=== PATIENT | male | born 1965 | race Caucasian/White ===

== ENCOUNTER 2019-08-22 13:24 | Inpatient (IN) | payer OTHER ==
[2019-08-22] VITALS (8 sets, daily range): BP systolic 133–187; BP diastolic 84–116
[~2019-08-22] VITALS: Ht 177.8 cm; Wt 104.2 kg
[2019-08-22 14:36] LABS: ABSOLUTE NEUTROPHILS 6.8 thou/uL (1.4-8.2); BASOPHILS 0.5 % (0.0-2.0); EOSINOPHILS 3.7 % (0.0-3.0); HEMATOCRIT 48.3 % (42.0-52.0); HEMOGLOBIN 16.3 gm/dL (14.0-18.0); LYMPHOCYTES 10.7 % (24.0-44.0); MCH 36.7 pg (26.0-34.0); MCHC 33.7 g/dL (28.0-37.0); MCV 108.8 fL (80.0-100.0); MONOCYTES 6.1 % (1.0-8.0); PLATELET COUNT 185 thou/uL (150-400); RBC 4.43 mil/uL (4.50-6.00); RDW 15.6 % (10.5-14.5); WBC 8.7 thou/uL (4.0-11.0)
[2019-08-22 14:40] LABS: ANION GAP 10 mmol/L (7-16); BUN 7 mg/dL (7-18); CALCIUM 8.6 mg/dL (8.5-10.1); CHLORIDE 101 mmol/L (98-107); CO2 28 mmol/L (21-32); CREATININE 0.8 mg/dL (0.7-1.3); GLUCOSE 117 mg/dL (74-106); SODIUM 139 mmol/L (136-145)
[2019-08-22 14:50] LABS: ALBUMIN 2.5 g/dL (3.4-5.0); MAGNESIUM 1.7 mg/dL (1.8-2.4); PHOSPHORUS 3.6 mg/dL (2.5-4.9); SGOT 137 U/L (15-37); SGPT 52 U/L (30-65); TOTAL PROTEIN 8.7 g/dL (6.4-8.2); TROPONIN-I <0.06 ng/mL (<0.06)
[2019-08-22 14:55] LABS: HCO3 27.3 mmol/L (22.0-26.0); PCO2 49.4 mmHg (35.0-45.0); PO2 72.6 mmHg (80.0-100.0); sO2 93.9 % (92.0-98.0)
[2019-08-22 15:02] LABS: APTT 32.9 Seconds (24.5-32.8); D-DIMER 4.07 ug/mLFEU (0.19-0.50); INR 1.5; PROTIME 14.9 Seconds (9.3-11.4)
[2019-08-22 17:10] LABS: CLARITY CLOUDY; COLOR AMBER; SOURCE RIGHT CHEST; TOTAL VOLUME 60 mL
[2019-08-22 17:32] LABS: BF NUCLEATED CELLS 201; BF RBC 9305
[2019-08-22 18:10] LABS: AMP/METHAMP Negative (Negative); BARBITURATES Negative (Negative); BENZODIAZEPINES Negative (Negative); COCAINE Negative (Negative); METHADONE Negative (Negative); OPIATES Negative (Negative); PCP Negative (Negative)
[2019-08-22 19:10] LABS: BF MACROPHAGE 70; BF NEUTROPHILS 4
[2019-08-22] MEDS ORDERED: VITAMIN D3 COM1 EACH PO (20:00)
[2019-08-22] MEDS ORDERED: CENTRUM MEN'S1 EACH PO (20:01)
--- NOTE | 2019-08-22 21:16 | NUR ---
ADMISSION NOTE: ARRIVED FROM [facility] AT 1930. AX04. ON 6L NC, SATS ABOVE 90%. SHALLOW BREATHING NOTED. VSS. AFEBRILE. CONSULTS CALLED INTO DR. WHITE AND APURVA. SPOKE TO DR. MIXON AT 2043, UPDATED DR. MIXON ABOUT PT'S STATUS, CARE AND LABS. ORDERS FOR BIPAP PRN GIVEN IF NEEDED. CALLED [facility] TO INFORM ABOUT NEED FOR CIWA PROTOCOL, UNABLE TO REACH [facility], WILL TRY AGAIN. WILL CONTINUE TO MONITOR PT.
[2019-08-23] VITALS (29 sets, daily range): BP systolic 129–179; BP diastolic 55–109
--- NOTE | 2019-08-23 02:00 | NUR ---
INCREASED NEED FOR O2 AT 0200 AM. PT WAS RESTLESS DURING THAT TIME. STATED HE WAS DIZZY AND HAVING DIFFICULTIES BREATHING. 1 MG ATIVAN IV GIVEN. TRIED TO PLACE PATIENT ON NONREBREATHER, PT WAS UNABLE TO TOLERATE. PT PLACED ON 12L NC. SATS ABOVE 92%. INFORMED HISTOLOGY TECH KIM ABOUT PATIENT CHANGE IN STATUS.
--- NOTE | 2019-08-23 08:13 | EKG ---
[facility] [place] [address] ELECTROCARDIOGRAM REPORT Name: CHAPARRO STEPHENS Room #: 239-P ADM IN M.R.#: [id number] Admission: 08/22/19 Attend Phys: Oj Gasca MD Discharge: Date of : 65 Report #: [id number] THIS REPORT FOR: cc: FAM - Family physician unknown FAM - Family physician unknown Juan Pablo Sharif MD [facility] ~ THIS REPORT FOR: //name// [facility] ED Test Date: 2019-08-22 Test Time: 13:28:47 Pat Name: CHAPARRO STEPHENS Department: Room: 239 Gender: M Logistics Planning Manager: EMERSON : [id number] Requested By: Ruddy Lovelace Order Number: [id number] MD: Juan Pablo Sharif Measurements Intervals [place] Rate: 107 P: 61 NH: 159 QRS: 99 QRSD: 98 T: 18 QT: 351 QTc: 469 Interpretive Statements Sinus tachycardia Nonspecific ST and T wave abnormality No previous ECG available for comparison Electronically Signed On 08-23-2019 8:12:04 CDT by Juan Pablo Sharif [email or web address] <ELECTRONICALLY SIGNED> By: Juan Pablo Sharif MD, FAC 08/23/19 0812 [id number] [id number] Juan Pablo Sharif MD, [facility] /EPI
[2019-08-23 08:39] LABS: ALBUMIN 2.4 g/dL (3.4-5.0); CALCIUM 8.1 mg/dL (8.5-10.1); CREATININE 0.7 mg/dL (0.7-1.3); MAGNESIUM 1.7 mg/dL (1.8-2.4); POTASSIUM 3.7 mmol/L (3.5-5.1); TOTAL BILIRUBIN 3.8 mg/dL (<0.1-1.0); TOTAL PROTEIN 7.8 g/dL (6.4-8.2)
[2019-08-23 09:08] LABS: BODY FLUID ALBUMIN 0.4 g/dL (Not Estab.); BODY FLUID AMYLASE 25 U/L (()); BODY FLUID GLUCOSE 118 mg/dL (()); BODY FLUID LDH 70 IU/L (()); BODY FLUID PROTEIN 1.2 g/dL (())
--- NOTE | 2019-08-23 09:11 | NUR ---
chart review. cm called pt cell, no answer. cm gave bedside nurse safe net packet for tracie and dcp outpt resources. report from bedside nurse that pt is very short of air and unable to talk via phone call. noted no prim noted, no insurance noted. will cont following as needed for dc needs.
[2019-08-23 10:22] LABS: % SATURATION 47 % (20-39); IRON 94 ug/dL (65-175); TIBC 198 ug/dL (250-450)
[2019-08-23 12:08] LABS: IgG 3242 mg/dL (603-1613)
[2019-08-23 13:08] LABS: HAV IgM AB (ANTI-HAV IgM) Negative (Negative); HEPATITIS B SURFACE AG Negative (Negative); HEPATITIS C VIRUS AB <0.1 (0.0-0.9)
[2019-08-23 16:52] LABS: BE(vivo) 6.5 mmol/L (-2 to +3); HCO3 32.6 mmol/L (22.0-26.0); PCO2 51.6 mmHg (35.0-45.0); PO2 66.2 mmHg (80.0-100.0); pH 7.419 (7.360-7.450); sO2 93.2 % (92.0-98.0)
--- NOTE | 2019-08-23 19:30 | NUR ---
IMPROVED TODAY, REMAINS ON 15L/HIGH FLOW NC WITH HUMIDITY. ST-109, BP CONTROLLED WITH PRN HYDRALAZINE, RESP LESS LABORED WITH MORPHINE IV ADMINISTRATION, TOLERATED 25% PM MEAL, LARGE URINE OUTPUT RESPONSE TO LASIX, WAS UNABLE TO USE URINAL EFFECTIVELY- ENTIRELY SOAKING PAD AND UNABLE TO MONITOR EXACT URINE OUTPUT. GARVIN 18 FR PLACED WITH STERILE TECHNIQUE, WELL TOLERATED. COVID RESULTED NEGATIVE. CALL PLACED TO DR. YEH REGARDING RESULT. CALL NOT RETURNED AT THIS TIME.
[2019-08-24] VITALS (22 sets, daily range): BP systolic 108–160; BP diastolic 53–95
--- NOTE | 2019-08-24 05:11 | NUR ---
1900, PT ALERT AND ORIENTED. PT ON 15 L HIGH FLOW NASAL CANNULA. LABORED BREATHING WITH USE OF ACCESORY MUSCLES. PT REPORTS THE BREATHING IS BETTER THAN WHAT HE WA PREVIOUSLY. PT CURRENTLY ON A NONE REBREATHER DUE TO O2 DESAT OVERNIGHT. SCORES 3 ON CIWA. PT DENIES HALLUCINATING. MORPHINE PRN GIVEN FOR SOB AND GENERALIZED ABDOMINAL PAIN. MILD COUGH AND CONGESTION, CRACKLES AND COURSENESS IN ALL LUNG GOMEZ. PT WAS HAVING BLOODY URINE THIS MORNING FOR THE CATHETER. DIRECTOR OF COMPENSATION NOTIFIED. ORDERS TO FLUSH GARVIN AND COLLECT UA GIVEN. NO ADDITIONAL C/O AT THIS TIME. WILL CONTINUE WITH POC.
[2019-08-24 05:51] LABS: HEMATOCRIT 44.7 % (42.0-52.0); HEMOGLOBIN 15.2 gm/dL (14.0-18.0); MCH 37.4 pg (26.0-34.0); RBC 4.07 mil/uL (4.50-6.00); RDW 15.3 % (10.5-14.5); WBC 10.8 thou/uL (4.0-11.0)
[2019-08-24 06:06] LABS: INR 1.4
[2019-08-24 06:27] LABS: ALBUMIN 2.2 g/dL (3.4-5.0); CALCIUM 8.3 mg/dL (8.5-10.1); CREATININE 0.7 mg/dL (0.7-1.3); POTASSIUM 4.2 mmol/L (3.5-5.1); TOTAL BILIRUBIN 3.6 mg/dL (<0.1-1.0); TOTAL PROTEIN 8.1 g/dL (6.4-8.2)
[2019-08-24 08:12] LABS: CERULOPLASMIN 33.1 mg/dL (16.0-31.0)
[2019-08-24 08:52] LABS: SOURCE CHEST
--- NOTE | 2019-08-24 11:59 | NUR ---
ON-GOING ASSESSMENT: CM REVIEWED CHART AND SPOKE WITH ATTENDING. PT HAD THORACENTESIS YESTERDAY. PT IS MORE TACHYPNEIC AND HYPOXIC TODAY. PULMONARY SPOKE WITH PATIENT ABOUT POSSIBLE NEED FOR INTUBATION, PT WISHES TO BE DNR AND IS ON 15L NRB MASK. CM WILL CONTINUE TO FOLLOW TO ASSIST NEEDED.
--- NOTE | 2019-08-24 13:08 | PATH ---
[facility] [address] [place] [address] PATHOLOGY RPT PROCEDURE Name: CHAPARRO STEPHENS Room #: 239-P ADM IN M.R.#: [id number] Admission: 08/22/19 Date of : 65 Discharge: Report #: [id number] Path Case #: [id number] Note [facility] Accession Number: [id number] TESTS RESULT FLAG UNITS REF RANGE LAB Clinician Provided Cytology Information No. of containers..01 Other (Miscellaneous) Source: 01 R PLEURAL DIAGNOSIS: 02 RIGHT PLEURAL FLUID NEGATIVE FOR MALIGNANT EPITHELIAL CELLS. REACTIVE MESOTHELIAL CELLS ARE PRESENT. THIS INTERPRETATION INCLUDES EVALUATION OF A CELL BLOCK. Pathologist ICD10: 02 J90 Signed out by: Sandra Kaplan MD, Pathologist NPI- [id number] Performed by: Adri Franco, Rolling Mill Operator Helper ([facility]) Gross description: 01 20 ML, CLOUDY ORANGE, 1 TP 1 CB /LCS 08/23/2019 1105 Local FLAG LEGEND: L-Low Normal,H-High Normal,LL-Alert Low,HH-Alert High <-Panic Low,>-Panic High,A-Abnormal,AA-Critical Abnormal Performed at: [address] [place] [address] Alexander Mercado MD, [address] [address] Sandra Kaplan MD, Specimen Comment: A courtesy copy of this report has been sent to [phone] Specimen Comment: Report sent to Performed at: [address], [place], [place] [id number] MD Alexander Mercado MD Phone: [phone]
[2019-08-24 13:19] LABS: BE(vivo) 9.1 mmol/L (-2 to +3); HCO3 41.2 mmol/L (22.0-26.0); sO2 93.8 % (92.0-98.0)
[2019-08-24 13:20] LABS: PCO2 97.9 mmHg (35.0-45.0); pH 7.242 (7.360-7.450)
--- NOTE | 2019-08-24 18:18 | NUR ---
ASSUMED CARE OF PT AT 0700. PT ALERT AND ORIENTED X2-3 LETHARGIC. ON HIGH FLOW PLUS NONREBREATHER EARLIER TODAY - NOW ON BIPAP. CRITICAL CO2 RELAYED TO PULM. APPEARS TO BE IMPROVING AFTER TIME ON BIPAP - NOW MORE RESPONSIVE. REPORTS FEELING OVERALL BETTER TODAY. ATE LITTLE AMOUNTS DURING MEALS. TEXTING AND TAKING SELFIES ON PHONE. GARVIN IRRIGATED PER ORDER - URINE COLOR CLEARING UP, LESS SEDIMENT. GOOD OUTPUT AFTER LASIX. CIWA 3-5. CALLS APPROPRIATELY. VITALS STABLE. INCREASED RESPIRATIONS THROUGHOUT SHIFT. SLOW PROGRESS TOWARD POC GOALS.
[2019-08-25] VITALS (25 sets, daily range): BP systolic 109–162; BP diastolic 62–86
[2019-08-25 02:57] LABS: URINE BILIRUBIN 2+ (Negative); URINE BLOOD 3+ (Negative); URINE CLARITY SL CLOUDY; URINE COLOR YELLOW; URINE GLUCOSE-RANDOM* NEGATIVE (Negative); URINE KETONES NEGATIVE (Negative); URINE LEUKOCYTES TRACE (Negative); URINE NITRITE NEGATIVE (Negative); URINE PROTEIN (DIPSTICK) TRACE (Negative); URINE SPECIFIC GRAVITY 1.025 (1.005-1.035)
[2019-08-25 03:19] LABS: BACTERIA 1-9 Few /HPF (None Seen); CASTS None Seen /LPF (None Seen); CRYSTALS None Seen /LPF (None Seen); MUCUS 4-6 Moderate strn/LPF (None Seen); SQUAMOUS 0-3 Few /LPF (0-3); URINE RBC >20 Many /HPF (0-2); URINE WBC 0-5 Rare /HPF (0-5)
[2019-08-25 05:23] LABS: ALBUMIN 1.9 g/dL (3.4-5.0); ANION GAP 0 mmol/L (7-16); BUN 10 mg/dL (7-18); CALCIUM 8.1 mg/dL (8.5-10.1); CHLORIDE 99 mmol/L (98-107); CO2 38 mmol/L (21-32); CREATININE 0.7 mg/dL (0.7-1.3); GLUCOSE 103 mg/dL (74-106); MAGNESIUM 1.7 mg/dL (1.8-2.4); POTASSIUM 3.8 mmol/L (3.5-5.1); SGOT 95 U/L (15-37); SGPT 43 U/L (30-65); SODIUM 137 mmol/L (136-145); TOTAL BILIRUBIN 2.6 mg/dL (<0.1-1.0); TOTAL PROTEIN 6.8 g/dL (6.4-8.2); TROPONIN-I <0.06 ng/mL (<0.06)
[2019-08-25 05:39] LABS: BE(vivo) 10.6 mmol/L (-2 to +3); HCO3 39.8 mmol/L (22.0-26.0); PO2 62.3 mmHg (80.0-100.0); pH 7.339 (7.360-7.450); sO2 89.4 % (92.0-98.0)
[2019-08-25 05:44] LABS: PCO2 75.6 mmHg (35.0-45.0)
[2019-08-25 05:50] LABS: ABSOLUTE NEUTROPHILS 6.3 thou/uL (1.4-8.2); BASOPHILS 0.3 % (0.0-2.0); EOSINOPHILS 4.5 % (0.0-3.0); HEMATOCRIT 40.6 % (42.0-52.0); HEMOGLOBIN 13.5 gm/dL (14.0-18.0); LYMPHOCYTES 11.2 % (24.0-44.0); MCH 36.7 pg (26.0-34.0); MCHC 33.3 g/dL (28.0-37.0); MCV 110.1 fL (80.0-100.0); MONOCYTES 8.2 % (1.0-8.0); PLATELET COUNT 139 thou/uL (150-400); POLYS 75.8 % (36.0-66.0); RBC 3.69 mil/uL (4.50-6.00); RDW 14.8 % (10.5-14.5); WBC 8.3 thou/uL (4.0-11.0)
--- NOTE | 2019-08-25 06:36 | NUR ---
ASSUMED CARE AT 1900. PT ON NC AT 15L THEN SWITCHED TO BIPAP, TOLERATING WELL WITH SATS MID 90'S. DENIED NAUSEA. REPORTED RIGHT ABD AND LEFT HIP PAIN THIS AM, GAVE DOSE OF MORPHINE WHICH HELPED PT SLEEP. APPROX 0315, PT TOOK BIPAP OFF FOR A DRINK AND DESATTED TO 75%; REPLACED MASK AND RETURNED TO BASELINE. PT ASKED TO SWITCH TO NC ABOUT 0340, DROPPED INTO LOW 80'S AND RT PLACED ON "INTERIOR WIRER MASK" VIA BIPAP BY RT; SATS STAYED ABOUT 92%. CRITICAL PCO2 CALLED TO DR. MIXON, NO ORDERS RECEIVED. NO OTHER CONCERNS.
[2019-08-25 10:08] LABS: ANA INTERPRETATION Positive (Negative)
--- NOTE | 2019-08-25 12:25 | NUR ---
ON-GOING ASSESSMENT: PT IS TOLERATING BIPAP AND SHOWING SLOW PROGRESSION. CM WILL CONTINUE TO FOLLOW TO ASSIST NEEDED.
--- NOTE | 2019-08-25 15:07 | NUR ---
PATIENT ALERT AND ORIENTED, ON BIPAP NEEDED OTHERWISE ON 15L NRB. VITALS STABLE AND MEDICATED FOR HEADACHE WITH TYLENOL. TOLERATING DIET BUT POOR APPETITE. DR. MIXON CONSULTED DR. YEH AND PER DR. YEH PATIENT CAN COME OFF ISOLATION. ORDERS IN COMPUTER FOR CC TELE. PATIENT WILL TRANSFER WHEN ROOM IS AVAILABLE.
--- NOTE | 2019-08-25 15:27 | NUR ---
bedside nurse called to check and make sure it was legit to have pt call [facility], they called [facility] and wanted tracie to call them about medicaid. education that it is ok for him to call [facility] they help hospital with medicaid apps.
--- NOTE | 2019-08-25 17:31 | NUR ---
gave order patient can be transferred to telemetry or regular bed. He is a DNR. Dr. Snyder agrees with transfer and to discontinue isolation. Serina Eagle nursing respiratory supervisor notified of above but no beds available. She states beds will open up tomorrow so can move to pod 2 until then.
[2019-08-26] VITALS (19 sets, daily range): BP systolic 110–146; BP diastolic 64–91
--- NOTE | 2019-08-26 04:20 | NUR ---
ASSUMED PT CARE AT 1900, PT IS A&OX4, MAKES NEEDS KNOWN, PT ON 15 L ON A NON-REBREAHER SWITHED TO BIPAP AND TOLERATING WELL WITH SATS STABLE IN MID , SR ON THE MONITOR WITH VITALS STABLE, PT BECAME ANXIOUS ABOUT 2209, STATED THAT HE WANTED TO GET UP FOR SOME FRESH AIR, ATIVAN GIVEN WHICH CALMED HIM DOWN, NO MORE EPISODES THUS FAR, COMPLAINED OF HEADACHE, TYL GIVEN WITH RELIEF, PT OFERRED A BATH BUT REFUSED THIS AM, STATES HE WANTS TO GET MORE SLEEP, RESTING IN BED WITH NO DISTRESS NOTED AT THIS TIME, WILL CONTINUE TO MONITOR
--- NOTE | 2019-08-26 06:31 | NUR ---
ATIVAN GIVEN FOR ANXIETY, PT CALM IN BED, BATH GIVEN, NO DISTRESS NOTED
--- NOTE | 2019-08-26 09:04 | NUR ---
PATIENT RESTING IN BED WITH EYES CLOSED. DENIES PAIN. CEWA SCORE=1 AT THIS TIME. ON BIPAP 75%, REFUSING BREAKFAST AT THIS TIME. ENCOURAGED TO INCREASE NUTRITION. GARVIN SECURED AND PATENT. FALL PRECAUTIONS IN PLACE.
[2019-08-26 10:23] LABS: HEMATOCRIT 43.2 % (42.0-52.0); HEMOGLOBIN 14.7 gm/dL (14.0-18.0); MCH 36.9 pg (26.0-34.0); MCHC 34.1 g/dL (28.0-37.0); MCV 108.3 fL (80.0-100.0); PLATELET COUNT 141 thou/uL (150-400); RBC 3.99 mil/uL (4.50-6.00); RDW 14.7 % (10.5-14.5); WBC 6.6 thou/uL (4.0-11.0)
[2019-08-26 10:33] LABS: ANION GAP < 0 mmol/L (7-16); BUN 11 mg/dL (7-18); CALCIUM 8.4 mg/dL (8.5-10.1); CHLORIDE 97 mmol/L (98-107); CO2 42 mmol/L (21-32); CREATININE 0.8 mg/dL (0.7-1.3); GLUCOSE 101 mg/dL (74-106); POTASSIUM 3.4 mmol/L (3.5-5.1); SODIUM 137 mmol/L (136-145)
[2019-08-26 11:16] LABS: BE(vivo) 14.7 mmol/L (-2 to +3); HCO3 41.3 mmol/L (22.0-26.0); PO2 72.4 mmHg (80.0-100.0); sO2 95.1 % (92.0-98.0)
[2019-08-26 11:39] LABS: ABSOLUTE NEUTROPHILS 5.2 thou/uL (1.4-8.2); ANISOCYTOSIS 1+; MACROCYTES 2+; PLATELET ESTIMATE SLIGHTLY DECREASED
--- NOTE | 2019-08-26 15:06 | NUR ---
SW reviewed chart and spoke with nursing and attending physician. Pt transferred to from ICU earlier today. Therapy ordered to evaluate pt for discharge needs. No weekend discharge planned. [facility] is following to assist as needed with discharge planning.
--- NOTE | 2019-08-26 17:34 | NUR ---
ASSUMED CARE OF PT AT APPROX 1330 FROM ICU. ASSESSMENT CHARTED. PT A&OX4, NO C/O PAIN. PT ON 10L HIGH FLOW NC, WITH NO DISTRESS DURING THIS SHIFT. 1600 CIWA=5, D/T SLIGHT NAUSEA AND HEADACHE. WILL CONTINUE TO MONITOR AND FOLLOW POC.
[2019-08-27 00:14] VITALS: BP 124/72
[2019-08-27 04:41] VITALS: BP 116/65
--- NOTE | 2019-08-27 04:51 | NUR ---
Assumed pt care at 1900. Pt is alert and oriented. No sign of distress noted in pt. CIWA protocol in place. Pt is on oxygen, high flow. SOA with activity noted. Vital sign stable. Assessment completed and documented. Tolerated PO intake. Pt became anxious right before bedtime. Medication administered. BIPAP placed in patient at bedtime. Denies any pain. Continue to monitor. No further needs at this time.
[2019-08-27 05:34] LABS: DIRECT BILIRUBIN 1.8 mg/dL (<0.1-0.2); TOTAL BILIRUBIN 2.9 mg/dL (<0.1-1.0); TOTAL PROTEIN 7.3 g/dL (6.4-8.2)
[2019-08-27 07:10] VITALS: BP 129/80
[2019-08-27 11:00] VITALS: BP 139/75
[2019-08-27 17:20] VITALS: BP 147/90
[2019-08-27 19:26] VITALS: BP 154/83
--- NOTE | 2019-08-27 19:41 | NUR ---
ASSUMED CARE OF PATIENT AT 0700. ASSESSMENT COMPLETED. GARVIN CATHETER PATENT. ABX GIVEN VIA IV. PATIENT LAYING IN BED ON HIS RIGHT SIDE AND UNWILLING TO MOVE DUE TO DIFFICULTY BREATHING AND UNCOMFORTABLNESS. O2 SAT 92-95% AT THIS TIME. LASIX GIVEN. PATIENT COMPLAINING OF PAIN AT 10/10, MORPHINE 4 MG GIVEN. PATIENT QUICKLY FELL ASLEEP, SLEEPING FOR 5 HOURS. PATIENT DID NOT EAT BREAKFAST OR LUNCH. HE WOKE UP IN TIME TO EAT DINNER, SITTING UP IN BED AND STATING THAT HIS PAIN WAS AT A 4/10, DENYING ANY DIFFICULTY BREATHING. PATIENT TO CONTINUE WITH POC.
[2019-08-28 04:07] LABS: ABSOLUTE NEUTROPHILS 4.9 thou/uL (1.4-8.2); BASOPHILS 0.5 % (0.0-2.0); EOSINOPHILS 7.2 % (0.0-3.0); HEMATOCRIT 41.1 % (42.0-52.0); LYMPHOCYTES 13.3 % (24.0-44.0); MCH 36.6 pg (26.0-34.0); MCV 107.7 fL (80.0-100.0); MONOCYTES 9.7 % (1.0-8.0); PLATELET COUNT 120 thou/uL (150-400); POLYS 69.3 % (36.0-66.0); RBC 3.82 mil/uL (4.50-6.00); RDW 14.7 % (10.5-14.5)
[2019-08-28 04:14] LABS: INR 1.3; PROTIME 13.5 Seconds (9.3-11.4)
[2019-08-28 04:17] VITALS: BP 107/67
[2019-08-28 04:21] LABS: ANION GAP < 0 mmol/L (7-16); BUN 14 mg/dL (7-18); CALCIUM 8.4 mg/dL (8.5-10.1); CHLORIDE 99 mmol/L (98-107); CO2 44 mmol/L (21-32); CREATININE 0.8 mg/dL (0.7-1.3); GLUCOSE 95 mg/dL (74-106); MAGNESIUM 1.9 mg/dL (1.8-2.4); PHOSPHORUS 3.5 mg/dL (2.5-4.9); POTASSIUM 3.7 mmol/L (3.5-5.1); SGOT 126 U/L (15-37); SGPT 56 U/L (30-65); SODIUM 138 mmol/L (136-145); TOTAL BILIRUBIN 2.9 mg/dL (<0.1-1.0); TOTAL PROTEIN 7.2 g/dL (6.4-8.2)
--- NOTE | 2019-08-28 05:19 | NUR ---
ASSUMED PT CARE AT 1900. PT IS ALERT AND ORIENTED WITH NO SIGN OF DISTRESS NOTED IN PT. DENIES ANY PAIN. PT IS STABLE. ASSESSMENT COMPLETED AND DOCUMENTED. SCHEDULED MEDS ADMINISTERED TO PT. TOLERATED PO INTAKE. BIPAP ON AT BEDTIME. CONTINUE TO MONITOR PT. DENIES PAMELA FURTHER NEEDS AT THIS TIME.
[2019-08-28 07:20] VITALS: BP 119/68
[2019-08-28 11:00] VITALS: BP 135/91
[2019-08-28 16:00] VITALS: BP 106/73
[2019-08-28 19:14] VITALS: BP 116/70
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
[2019-08-29 04:31] VITALS: BP 110/72
[2019-08-29 08:00] VITALS: BP 99/64
--- NOTE | 2019-08-29 08:07 | NUR ---
PT STARTED BIPAP AT 0100 AFTER PO LORAZEPAM GIVEN, O2 SATS MID 90'S, NO C/O PAIN, GARVIN WITH ORANGE URINE, PT REFUSES TO TURN TO THE LEFT ENCOURAGED TO MOVE FROM HIS RIGHT SIDE AND SIT UP, VSS, NO C/O PAIN, REPORT GIVEN TO NEXT SHIFT WILL CON'T TO MONITOR PER PPOC.
[2019-08-29 12:00] VITALS: BP 107/58
--- NOTE | 2019-08-29 14:41 | NUR ---
Assess due to length of stay. Admit with fluid overload, etoh cirrhosis with ascites, right pleural effusion. S/P paracentesis. Upon visit, pt sleeping with lights out in room, would not awaken when questioned name on several attempts. EMR reviewed. 10 lb wt loss over admit, lasix. Eating 50-100%. Requires BIPAP. Started on lactulose for constipation. On MVI, thiamine. Would also recommend folate supplementation for level 9. Low nutrition risk at this time.
--- NOTE | 2019-08-29 14:45 | NUR ---
Recommend supplement folate due to borderline low levels of 9.
[2019-08-29 16:00] VITALS: BP 124/80
--- NOTE | 2019-08-29 18:00 | NUR ---
ASSUMED CARE PT SHIFT CHAGNE. ASSESSMNTS CHARTED.MEDS GIVEN PER JUN. PT ALERT AND ORIENTED. VSS. DENIES PAIN. O2 SATS WNL 10L HIGH FLOW O2. PT UP TO CHAIR WITH PHYS THERAPY TOLERATING WELL. PT STATED FELT MUCH RELIEF WITH BREATHING WHEN UP IN CHAIR. ABDOMEN FIRM. SOB WITH ACTIVITY. APPETITE ADEQUATE. PT CURRENTLY UP IN CHAIR EATING DINNER. DENIES CONCERNS. MONITORING CONTINOUSLY. WILL PASS ON REPORT TO NOC NURSE.
[2019-08-29 20:15] VITALS: BP 128/80
--- NOTE | 2019-08-30 02:43 | NUR ---
ASSESSMENT DOCUMENTED.PT BEEN RESTING IN NO ACUTE DISTRESS.A/OX4.VSS.CONTINUES TO NEED OXYGEN AT 10LITERS AT HIGH FLOW.ON BIPAP WHILE SLEEPING,NO RESP DISTRESS NOTED.GARVIN DD TO ORANGE IN COLOR URINE.DENIES PAIN OR ANY DISTRESS AT THIS TIME.WILL CONT TO MONITOR PER POC.
[2019-08-30 04:45] VITALS: BP 108/66
[2019-08-30 05:47] LABS: HEMATOCRIT 40.7 % (42.0-52.0); HEMOGLOBIN 13.9 gm/dL (14.0-18.0); MCH 36.6 pg (26.0-34.0); MCHC 34.1 g/dL (28.0-37.0); MCV 107.5 fL (80.0-100.0); RBC 3.79 mil/uL (4.50-6.00); RDW 14.6 % (10.5-14.5); WBC 6.7 thou/uL (4.0-11.0)
[2019-08-30 06:04] LABS: CALCIUM 8.3 mg/dL (8.5-10.1); CREATININE 0.8 mg/dL (0.7-1.3); POTASSIUM 3.2 mmol/L (3.5-5.1)
[2019-08-30 08:00] VITALS: BP 120/85
[2019-08-30 10:19] LABS: ALBUMIN 1.9 g/dL (3.4-5.0); DIRECT BILIRUBIN 1.5 mg/dL (<0.1-0.2); TOTAL BILIRUBIN 2.8 mg/dL (<0.1-1.0); TOTAL PROTEIN 6.9 g/dL (6.4-8.2)
[2019-08-30 13:00] VITALS: BP 115/75
--- NOTE | 2019-08-30 16:01 | NUR ---
ASSESSMENT CHARTED. PT ALERT AND ORIENTED. VSS. REPORT HAVING LEFT SIDE PAIN WITH DEEP BREATHING. DR. RAMSAY AWARE. ORDERS NOTED. NO CARDIAC OR RESPIRATORY DISTRESS NOTED. WILL CONTINUE TO MORNITOR.
[2019-08-30 17:00] VITALS: BP 123/75
[2019-08-31 04:31] VITALS: BP 114/71
[2019-08-31 04:33] VITALS: BP 114/71
--- NOTE | 2019-08-31 05:24 | NUR ---
PT A&O X4 ABLE TO MAKE NEEDS KNOWN. DENIES PAIN. SBA WITH TRANSFER RW/GB. 10L O2 PER NC BIPAP NOC. DENIES ANY ETHOL W/DRAWAL SYMPTOMS. GARVIN CATHETER IN PLACE. PT HAD A LARGE BM AT HS. PT CALLS APPROPRIATELY
[2019-08-31 08:26] VITALS: BP 104/64
--- NOTE | 2019-08-31 10:54 | NUR ---
Patient admitted with pleural effusion, ETOH abuse, has asites and liver failure. He cont with high liter flow oxygen 10 liters. 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 Patient has no health insurance. Possible need for 5N. casemgt following.
[2019-08-31 12:34] VITALS: BP 110/64
[2019-08-31 14:01] LABS: CALCIUM 8.3 mg/dL (8.5-10.1); CREATININE 0.9 mg/dL (0.7-1.3); POTASSIUM 3.1 mmol/L (3.5-5.1)
--- NOTE | 2019-08-31 15:14 | NUR ---
ASSESSMENT CHARTED. PT ALERT AND ORIENTED. RT TREATMENT PROVIDED ORDERED. IV ABX GIVEN. DR. MTZ CONSULTED. NPO AFTER MIDNIGHT FOR TIPS PROCEDURE SCHEDULED FOR TOMORROW. SOA NOTED WITH ACTIVITY. NO CONCERNS AT THIS TIME. WILL CONTINUE TO MONITOR.
[2019-08-31 16:51] VITALS: BP 135/87
[2019-08-31 19:50] VITALS: BP 112/67
[2019-09-01] VITALS (10 sets, daily range): BP systolic 109–151; BP diastolic 67–92
--- NOTE | 2019-09-01 04:45 | NUR ---
ASSESSMENT DOCUMENTED.PT BEEN RESTING IN NO ACUTE DISTRESS.A/OX4.VSS.ON BIPAP MOST OF THE NOC AND NOW.NO RESP DISTRESS NOTED.NSR ON MONITOR.NPO AFTER MIDNOC FOR TIPS PROCEDURE TODAY.NO CONCERNS VOICED.WILL CONT TO MONITOR PER POC.
[2019-09-01 05:41] LABS: HEMATOCRIT 40.5 % (42.0-52.0); HEMOGLOBIN 13.8 gm/dL (14.0-18.0); MCH 36.4 pg (26.0-34.0); MCV 106.9 fL (80.0-100.0); RBC 3.78 mil/uL (4.50-6.00); RDW 14.7 % (10.5-14.5); WBC 8.5 thou/uL (4.0-11.0)
[2019-09-01 06:00] LABS: CALCIUM 8.3 mg/dL (8.5-10.1); CREATININE 0.8 mg/dL (0.7-1.3); POTASSIUM 3.2 mmol/L (3.5-5.1)
--- NOTE | 2019-09-01 15:36 | NUR ---
Pt having TIPS procedure in IR today. Message left for [employer] liason to see if she has been able to reach him to work on [place] Medicaid /[place] disability application. Pt still on 10liters of o2 and being seen by therapy. Dc timeframe and needs are uncertain at this time. Will follow.
--- NOTE | 2019-09-01 16:29 | NUR ---
PT ASSESSED AT START OF SHIFT. PT SLEEPING W/ BIPAP AND NOW ON NC 10L. VERY PLEASANT AND COOPERATIVE. STATED HE WAS SOMEWHAT AFRAID TO HAVE TIPS PROCEDURE TODAY. HAS BEEN NPO SINCE MIDNOC. WENT TO IR AT 1205 AND HAS NOT RETURNED YET.
[2019-09-01 17:22] LABS: HEMOGLOBIN 14.4 gm/dL (14.0-18.0); MCH 36.2 pg (26.0-34.0); MCHC 34.2 g/dL (28.0-37.0); MCV 105.9 fL (80.0-100.0); RBC 3.97 mil/uL (4.50-6.00); RDW 14.9 % (10.5-14.5); WBC 10.3 thou/uL (4.0-11.0)
[2019-09-01 17:38] LABS: APTT 84.6 Seconds (24.5-32.8); INR 1.4; PROTIME 14.7 Seconds (9.3-11.4)
--- NOTE | 2019-09-01 19:00 | NUR ---
PT RETURNED TO ROOM AT 1815 PER BED BY REC R00M NURSES. REPORT RECEIVED PER IR RN AND BY THE RR NURSE. RESP THERAPIST AT BEDSIDE RIGHT AWAY AND CHANGED PT OVER FROM THE BIPAP TO NASAL CANNULA. O2 INCREASED TO 8 L- O2 SAT 92%. PT EATING SOME DINNER. DECLINED LACTULOSE DOSE. C/O ABD PAIN AND IV MORPHINE GIVEN. NOTED IV HEPARIN ORDER AND WILL PASS ON TO NOC RN WAS NOT STARTED PRIOR TO COMING BACK TO UNIT.
[2019-09-02 03:03] LABS: HEMATOCRIT 39.9 % (42.0-52.0); HEMOGLOBIN 13.6 gm/dL (14.0-18.0); MCH 36.2 pg (26.0-34.0); MCV 106.6 fL (80.0-100.0); RBC 3.75 mil/uL (4.50-6.00); RDW 14.7 % (10.5-14.5); WBC 8.8 thou/uL (4.0-11.0)
[2019-09-02 03:46] VITALS: BP 104/64
[2019-09-02 04:25] LABS: CALCIUM 8.2 mg/dL (8.5-10.1); CREATININE 0.9 mg/dL (0.7-1.3); TOTAL BILIRUBIN 2.2 mg/dL (<0.1-1.0); TOTAL PROTEIN 6.9 g/dL (6.4-8.2)
[2019-09-02 04:31] VITALS: BP 104/64
--- NOTE | 2019-09-02 04:34 | NUR ---
ASSESSMENT DOCUMENTED.PT BEEN RESTING IN NO ACUTE DISTRESS.A/OX4.VSS.ON BIPAP THROUGH THE NOC,MAINTAINED ADEQUATE SPO2.POST TIPS.HEPARIN INFUSING PER ORDERS,INCISION TO RIGHT ABDOMEN COVERED WITH DRESSING,NO ACTIVE BLEEDING NOTED.PT C/O PAIN TO INCISION THAT IS CONTROLLED BY PAIN MEDS.PT HOPING TO GO HOME TODAY OR TOMORROW.REMAINS ON O2 AT 10LITERS HF WHEN NOT IN BIPAP.SR ON MONITOR.GARVIN DD TO ORANGE URINE.WILL CONT W/POC.
[2019-09-02 04:48] LABS: POTASSIUM 4.4 mmol/L (3.5-5.1)
[2019-09-02 08:50] VITALS: BP 124/77
[2019-09-02 11:30] VITALS: BP 124/76
--- NOTE | 2019-09-02 13:45 | NUR ---
Pt had TIPS procedure yesterday. Still on 8liters of highflow O2. Working with therapy. [facility] working with pt for possible medicaid application. No weekend dc anticipated. Will reassess his rehab/dme needs on Thursday.
[2019-09-02 15:30] VITALS: BP 112/81
[2019-09-02 19:15] VITALS: BP 144/88
--- NOTE | 2019-09-02 20:22 | NUR ---
ASSUMMED PT CARE AT APPROXIMATELY 0700. PT A&O X4. ASSESSMENT CHARTED. FALL PRECAUTIONS IN PLACE. PT DENIES HAVING CHEST PAIN. PT STATED HE HAS SOB ON EXERSION. O2 SAT STABLE. PT STATED HE HAD L SIDED PAIN WHILE WALKING C PHYSICAL THERAPY. PT STATED HE FELT AND HEARD SOMETHING "POP" ON HIS L SIDE. PT STATED THAT PAIN HURT WORSE WHEN PT TOOK DEEP BREATHS OR MOVED. INFORMED DR. SALDIVAR OF PT'S L SIDED PAIN. DR. SALDIVAR STATED TO ORDER CHEST XRAY AND TO HOLD THORACENTESIS PROCEDURE. INFORMED DR. SALDIVAR OF XRAY RESULTS AND THAT PT STILL HAD PAIN. DR. SALDIVAR ORDERED NEW ANALGESICS. NEW ANALGESICS IMPLEMENTED. MONITORING PT'S PAIN. VITAL SIGNS STABLE. PT COMFORTABLE IN BED. PT DENIES HAVING FURTHER CONCERNS.
--- NOTE | 2019-09-03 03:47 | NUR ---
PT DECLINED BIPAP OVERNIGHT. ON HFNC 10L. PT A LITTLE DISORIENTED YESTERDAY AFTER FENTANYL IV. PT REQUESTS NOT TO BE GIVEN FENTANYL AGAIN. VSS. WILL CONTINUE TO MONITOR.
[2019-09-03 05:22] LABS: HEMATOCRIT 38.8 % (42.0-52.0); HEMOGLOBIN 13.1 gm/dL (14.0-18.0); MCH 36.6 pg (26.0-34.0); MCHC 33.7 g/dL (28.0-37.0); MCV 108.5 fL (80.0-100.0); RBC 3.58 mil/uL (4.50-6.00); RDW 14.9 % (10.5-14.5); WBC 10.8 thou/uL (4.0-11.0)
[2019-09-03 05:35] LABS: CREATININE 0.7 mg/dL (0.7-1.3); POTASSIUM 3.8 mmol/L (3.5-5.1)
[2019-09-03 06:25] VITALS: BP 136/83
[2019-09-03 08:45] VITALS: BP 143/88
[2019-09-03 11:52] VITALS: BP 107/78
--- NOTE | 2019-09-03 12:07 | NUR ---
Received awake on bed. Due medications given as prescribed, able to swallow meds w/o difficulty. On high flow oxygen at 10 lpm via nasal cannula; on continous pulse oximetry. A+Ox4. On heart monitoring- SR to ST. On regular diet- tolerating well; no nausea, no vomiting and no abdominal pain noted. With ascites noted on patient, on scheduled laxatives; ETOH abuse. With sheth catheter in place- sheth care done; stat lock changed today- output measured and recorded accordingly. With SL at L FA and R wrist- intact and flushing well; on IV abx. Assisted in ADLs. Falls bundle in place. Pt was supposed to be scheduled for thoracentesis yesterday but they had to reschedule because the pt was complaining of pain as relayed by shift supervisor film processing nurse. CIWA monitoring done- scoring 2. Pt seen examined by Dr Jamison- to call radiology and ask to have thoracentesis to be done today- Called [facility] and said they don't have a radiologist right now but they will be calling physician if able to do procedure today- [facility] called back and said Dr Giron able to do procedure today- explained to patient and agreed- consent signed- Dr Jamison updated. To continue monitoring patient.
[2019-09-03 14:19] LABS: BF NUCLEATED CELLS 226; BF RBC 7921
[2019-09-03 14:20] LABS: CLARITY HAZY; COLOR YELLOW; TOTAL VOLUME 22 mL
[2019-09-03 15:27] LABS: BF MACROPHAGE 35; BF NEUTROPHILS 25
[2019-09-03 15:59] LABS: SOURCE THORACENTESIS
[2019-09-03 16:39] VITALS: BP 115/74
[2019-09-03 20:01] VITALS: BP 117/70
[2019-09-04 03:21] LABS: HEMATOCRIT 38.8 % (42.0-52.0); HEMOGLOBIN 13.2 gm/dL (14.0-18.0); MCH 36.3 pg (26.0-34.0); MCHC 34.1 g/dL (28.0-37.0); MCV 106.4 fL (80.0-100.0); RBC 3.65 mil/uL (4.50-6.00); RDW 14.6 % (10.5-14.5); WBC 7.9 thou/uL (4.0-11.0)
--- NOTE | 2019-09-04 05:03 | NUR ---
PT RESTED WHOLE NIGHT. C/O LEFT UPPER QUADRANT PAIN. TYLENOL GIVEN. ON BIPAP FOR THE NIGHT. VSS. DENIES CHEST PAIN. OR NAUSEA. WILL CONTINUE WITH POC.
[2019-09-04 05:10] VITALS: BP 104/66
[2019-09-04 08:00] VITALS: BP 118/74
--- NOTE | 2019-09-04 12:58 | NUR ---
RECIEVE REPORT FROM DHIRAJ TAYLOR.
--- NOTE | 2019-09-04 16:01 | NUR ---
PT UP TO BATHROOM SEVERAL TIMES AND IS ON LACTULOSE FOR ETOH LIVER DZ. WILL DOSCONTINUE GARVIN CATHETER THIS SHIFT AND CONTINUE TO ASSESS.
[2019-09-04 16:50] VITALS: BP 94/52
[2019-09-04 20:21] VITALS: BP 101/57
[2019-09-05 05:29] VITALS: BP 95/82
--- NOTE | 2019-09-05 07:30 | NUR ---
[facility] 1900. PT.VITALS STABLE. INTERMITTENT LEFT SIDE PAIN. TOLERATES ACTIVITY WELL. UP TO BEDSIDE COMMODE. SR/ST ON MONITOR. NO DISTRESS NOTED THROUGH THE NIGHT. ADEQUATE REST NOTED. PROGRESSING WELL WITH POC. ASSESSMENT CHARTED. PT STILL ON OXYGEN AT 3LNC SATS 92-93%. PLAN IS TO CONTIUE TO WEAN OFF O2 AND POSSIBLE DISCHARGE WITHIN 1-2 DAYS. WILL CONTINUE TO MONITOR AND FOLLOW WITH POC
[2019-09-05 08:00] VITALS: BP 117/66
[2019-09-05] MEDS ORDERED: VITAMIN B-1100 M2 PO (10:29)
[2019-09-05] MEDS ORDERED: LACTULOSE20 GM/30 M PO (10:29)
[2019-09-05] MEDS ORDERED: PROTONIX40 M1 PO (10:29)
[2019-09-05] MEDS ORDERED: SPIRONOLACTONE100 M1 PO (10:29)
[2019-09-05] MEDS ORDERED: AUGMENTIN 875-1 EACH PO (10:31)
[2019-09-05] MEDS ORDERED: PROAIR HFA8.5 GM INH (10:32)
[2019-09-05] MEDS ORDERED: LASIX 40 MG TAB40 MG PO (10:32)
[2019-09-05 12:20] VITALS: BP 123/81
[2019-09-05 13:08] LABS: BODY FLUID ALBUMIN 0.7 g/dL (Not Estab.); BODY FLUID AMYLASE 39 U/L (()); BODY FLUID GLUCOSE 127 mg/dL (()); BODY FLUID LDH 71 IU/L (()); BODY FLUID PROTEIN 1.5 g/dL (())
[2019-09-05 13:14] LABS: SOURCE CHEST
[2019-09-05 16:38] VITALS: BP 123/81
--- NOTE | 2019-09-05 17:11 | NUR ---
Patient to dc home today. He has no health insurance. Vouched for home oxygen for one month with [facility]. Notified patient can vouch for one month then he is responsible. Alerted to cost of oxygen monthly and pricing. Patient is agreeable. Patient dc and left his prescriptions at hospital. Cas[facility]gt to vouch for prescriptions. Left message on his cell phone can vouch for prescriptions. Alerted of closing time of pharmacy. Gave number to pharmacy to call.
--- NOTE | 2019-09-05 21:09 | NUR ---
ASSUMED CARE PT SHIFT CHANGE. ASSESSMENTS CHARTED. MEDS GIVEN PER MAR. PT C/O PAIN PO PAIN MEDS GIVEN. PT ALERT AND ORIENTED.VS. O2 SATS WNL ON 3-4L O2. PT UP SBA TOLERATING VERY WELL. PT MOTIVATED AND EAGER TO GO HOME. RT REST AND EXERCISE DONE- REFER TO RESULTS. DC ORDERS ACKNOWLEDGED AND IMPLMENTED. DC PAPERWORK DISCUSSED WITH PT. COMMUNICATES UNDERSTANDING. PT LEFT WITH ALL BELONINGS BUT FORGOT PRESRIPTIONS. CASE MANAGEMENT NOTIFIED. SCRIPTS TAKEN BY CASE MANAGEMENT AND SENT TO OUTPATIENT PHARMACY.
--- NOTE | 2019-09-06 12:15 | NUR ---
medications vouvhed in amount of $115.02 patient aware medications are ready in outpatient pharmacy.
--- NOTE | 2019-09-07 13:08 | PATH ---
[facility] [address] [place] [address] PATHOLOGY RPT PROCEDURE Name: CHAPARRO STEPHENS Room #: 212-P DIS IN M.R.#: [id number] Admission: 08/22/19 Date of : 65 Discharge: 09/05/19 Report #: [id number] Path Case #: [id number] Note [facility] Accession Number: [id number] TESTS RESULT FLAG UNITS REF RANGE LAB Clinician Provided Cytology Information No. of containers..01 Other (Miscellaneous) Source: RT PLEURAL FLUID DIAGNOSIS: RT PLEURAL FLUID NEGATIVE FOR MALIGNANT CELLS. MESOTHELIAL CELLS ARE PRESENT. THIS INTERPRETATION INCLUDES EVALUATION OF A CELL BLOCK. Signed out by: 02 Jose Luis De Jesus MD, Pathologist NPI- [id number] Performed by: 01 Erica Meier, Sanitation Worker ([facility]) Gross description: 01 7.5ML, CLOUDY ORANGE, 1TP 1CB /LCS 09/06/2019 1112 Local FLAG LEGEND: L-Low Normal,H-High Normal,LL-Alert Low,HH-Alert High <-Panic Low,>-Panic High,A-Abnormal,AA-Critical Abnormal Performed at: [address] [place] [address] Alexander Mercado MD, [address] [place] [id number] Ulisses Valles MD, Specimen Comment: A courtesy copy of this report has been sent to [phone] Specimen Comment: Report sent to Performed at: [address], [place], [place] [id number] MD Alexander Mercado MD Phone: [phone]
== END 2019-09-05 17:00 | disposition home or self-care (01) | DRG 981 ==
LOC: ER 13:24 → 2N 15:41 → EROBS 15:41 → ICU 15:41 → 2N 08-26 13:29
PROVIDERS: Emergency Medicine; Hospitalist; Internal Medicine; Internal Medicine Gastroenterology; Nurse Practitioner; Nurse Practitioner Family; ADMIT Internal Medicine
PROC: 0W993ZZ Drainage of Right Pleural Cavity, Percutaneous Approach (ICD-10-PCS; principal; 2019-08-22)
PROC: 0W9G3ZZ Drainage of Peritoneal Cavity, Percutaneous Approach (ICD-10-PCS; 2019-08-23)
PROC: 5A09357 Assistance with Respiratory Ventilation, Less than 24 Consecutive Hours, Continuous Positive Airway Pressure (ICD-10-PCS; 2019-08-24)
PROC: 5A09357 Assistance with Respiratory Ventilation, Less than 24 Consecutive Hours, Continuous Positive Airway Pressure (ICD-10-PCS; 2019-08-25)
PROC: 5A09357 Assistance with Respiratory Ventilation, Less than 24 Consecutive Hours, Continuous Positive Airway Pressure (ICD-10-PCS; 2019-08-26)
PROC: 5A09357 Assistance with Respiratory Ventilation, Less than 24 Consecutive Hours, Continuous Positive Airway Pressure (ICD-10-PCS; 2019-08-27)
PROC: 5A09357 Assistance with Respiratory Ventilation, Less than 24 Consecutive Hours, Continuous Positive Airway Pressure (ICD-10-PCS; 2019-08-28)
PROC: 5A09357 Assistance with Respiratory Ventilation, Less than 24 Consecutive Hours, Continuous Positive Airway Pressure (ICD-10-PCS; 2019-08-29)
PROC: 5A09357 Assistance with Respiratory Ventilation, Less than 24 Consecutive Hours, Continuous Positive Airway Pressure (ICD-10-PCS; 2019-08-30)
PROC: 5A09357 Assistance with Respiratory Ventilation, Less than 24 Consecutive Hours, Continuous Positive Airway Pressure (ICD-10-PCS; 2019-09-01)
PROC: 06183J4 Bypass Portal Vein to Hepatic Vein with Synthetic Substitute, Percutaneous Approach (ICD-10-PCS; 2019-09-01)
PROC: 5A09357 Assistance with Respiratory Ventilation, Less than 24 Consecutive Hours, Continuous Positive Airway Pressure (ICD-10-PCS; 2019-09-02)
PROC: 0W993ZZ Drainage of Right Pleural Cavity, Percutaneous Approach (ICD-10-PCS; 2019-09-03)
DX: J96.01 Acute respiratory failure with hypoxia (principal); J18.9 Pneumonia, unspecified organism; G92 Toxic encephalopathy; J90 Pleural effusion, not elsewhere classified; E87.2 Acidosis; K76.6 Portal hypertension; J44.0 Chronic obstructive pulmonary disease with (acute) lower respiratory infection; K70.11 Alcoholic hepatitis with ascites; K70.31 Alcoholic cirrhosis of liver with ascites; E87.70 Fluid overload, unspecified; I16.0 Hypertensive urgency; R60.1 Generalized edema; D53.9 Nutritional anemia, unspecified; F17.200 Nicotine dependence, unspecified, uncomplicated; R79.1 Abnormal coagulation profile; F12.10 Cannabis abuse, uncomplicated; E66.01 Morbid (severe) obesity due to excess calories; K21.9 Gastro-esophageal reflux disease without esophagitis; Z66 Do not resuscitate; E03.9 Hypothyroidism, unspecified; F10.20 Alcohol dependence, uncomplicated; Z20.828 Contact with and (suspected) exposure to other viral communicable diseases; J96.02 Acute respiratory failure with hypercapnia; D69.6 Thrombocytopenia, unspecified; Z68.33 Body mass index [BMI] 33.0-33.9, adult; Z79.899 Other long term (current) drug therapy; Z79.51 Long term (current) use of inhaled steroids
CPT/HCPCS: 10078; 10081; 10203; 62110; 62900; 70005

== ENCOUNTER 2021-02-09 13:30 | Emergency (ER) | payer OTHER ==
[~2021-02-09] VITALS: Ht 170.2 cm; Wt 99.8 kg
[~2021-02-09 13:30] MED LIST: AUGMENTIN 875-1 EACH PO; CENTRUM MEN'S1 EACH PO; LACTULOSE20 GM/30 M PO; LASIX 40 MG TAB40 MG PO; PROAIR HFA8.5 GM INH; PROTONIX40 M1 PO; SPIRONOLACTONE100 M1 PO; VITAMIN B-1100 M2 PO; VITAMIN D3 COM1 EACH PO
[2021-02-09] MEDS ORDERED: TRAZODONE HCL50 MG PO (13:48)
[2021-02-09] MEDS ORDERED: CYCLOBENZAPRINE5 MG PO (13:49)
[2021-02-09 14:47] LABS: BASOPHILS 0.4 % (0.0-2.0); EOSINOPHILS 4.1 % (0.0-3.0); HEMATOCRIT 37.9 % (42.0-52.0); HEMOGLOBIN 12.8 gm/dL (14.0-18.0); LYMPHOCYTES 16.8 % (24.0-44.0); MCH 32.6 pg (26.0-34.0); MCHC 33.7 g/dL (28.0-37.0); MCV 96.7 fL (80.0-100.0); MONOCYTES 7.8 % (1.0-8.0); PLATELET COUNT 150 thou/uL (150-400); POLYS 70.9 % (36.0-66.0); RBC 3.91 mil/uL (4.50-6.00); RDW 14.8 % (10.5-14.5); WBC 9.8 thou/uL (4.0-11.0)
[2021-02-09 14:51] LABS: CALCIUM 8.8 mg/dL (8.5-10.1); CREATININE 0.9 mg/dL (0.7-1.3); POTASSIUM 4.8 mmol/L (3.5-5.1)
[2021-02-09] MEDS ORDERED: ONDANSETRON HCL4 M2 PO (16:14)
[2021-02-09] MEDS ORDERED: HYDROCODON-ACE1 EAC7 PO (16:14)
[2021-02-09 16:39] VITALS: BP 133/61
== END 2021-02-09 16:38 | disposition home or self-care (01) ==
LOC: ER 13:30
PROVIDERS: Nurse Practitioner
DX: S22.41XA Multiple fractures of ribs, right side, initial encounter for closed fracture (principal); S42.021A Displaced fracture of shaft of right clavicle, initial encounter for closed fracture; Z79.899 Other long term (current) drug therapy; V89.2XXA Person injured in unspecified motor-vehicle accident, traffic, initial encounter; Y93.89 Activity, other specified; Y92.89 Other specified places as the place of occurrence of the external cause; Y99.8 Other external cause status